=== PATIENT | male | born 1965 | race Hispanic/Latino ===

== ENCOUNTER 2017-07-21 12:36 | Day surgery (SDC) | payer BC ==
[2017-07-21] MEDS ORDERED: NACL 0.9% 1000 ML 1,000 ML ONE (13:06)
[2017-07-21] MEDS ORDERED: NACL 0.9% 1000 ML 1,000 ML IV SCH (14:00)
--- NOTE | 2017-07-21 14:43 | Anesthesia Consultation ---
Anesthesia Consult and Med Hx Date of service: 07/21/17 - Airway Anesthetic Teeth Evaluation: Good - Cardiac Exam Cardiac Exam: RRR - Pre-Operative Health Status ASA Pre-Surgery Classification: ASA2 Proposed Anesthetic Plan: IV Sedation - Pulmonary Hx Smoking: No Hx Asthma: No Hx Respiratory Symptoms: No SOB: No COPD: No Home Oxygen Therapy: No Hx Pneumonia: No Hx Sleep Apnea: No - Cardiovascular System Hx Hypertension: No Hx Coronary Artery Disease: No Hx Heart Attack/AMI: No Hx Angina: No Hx Percutaneous Transluminal Coronary Angioplasty (PTCA): No Hx Cardia Arrhythmia: No Hx Pacemaker: No Hx Internal Defibrillator: No Hx Valvular Heart Disease: No Hx Heart Murmur: No Hx Peripheral Vascular Disease: No - Central Nervous System Hx Neuromuscular Disorder: No Hx Seizures: No CVA: No Hx Back Pain: No Hx Psychiatric Problems: No - Gastrointestinal Hx Ulcer: No (screening colonoscopy) Hx Gastroesophageal Reflux Disease: No - Endocrine Hx Renal Disease: No Hx Liver Disease: No Hx Insulin Dependent Diabetes: No Hx Non-Insulin Dependent Diabetes: No Hx Thyroid Disease: No Hx Hypothyroidism: No Hx Hyperthyroidism: No - Other Systems Hx Alcohol Use: No Hx Substance Use: No Hx Cancer: No
--- NOTE | 2017-07-21 15:29 | Procedure Note ---
Date of procedure: 07/21/17 Pre-op diagnosis: Screening colonoscopy Post-op diagnosis: same Procedure: Colonoscopy to cecum Description of procedure. Pt was placed right side up. He was sedated IV by anesthesia. The scope was inserted into his rectum and was advanced retrograde while directly visualizing his lumen. The prep was adequate. Once the cecum was identified, the scope was slowly withdrawn with slow, careful, circumferential visualization of the colon. No tumors, polyps, diverticula, ulcerations or AVM's were noted. Retroflexed view of the distal rectum was also performed and was unrevealing. Insufflated air was aspirated and the scope withdrawn. Pt tolerated the procedure well. Anesthesia: MAC Surgeon: JOSE JEROME Estimated blood loss: none Pathology: none Condition: stable Disposition: same day
[2017-07-21 16:01] VITALS: BP 110/56
[2017-07-22] MEDS ORDERED: XYLOCAINE MPF 2% ONE (07:10)
[2017-07-22] MEDS ORDERED: SUBLIMAZE ONE (07:10)
[2017-07-22] MEDS ORDERED: DIPRIVAN 10 MG/ML IV ONE (07:10)
[2017-07-22] MEDS ORDERED: ZEMURON IV ONE (07:10)
[2017-07-22] MEDS ORDERED: ZOFRAN ONE (08:40)
[2017-07-22] MEDS ORDERED: TORADOL ONE (08:40)
[2017-07-22] MEDS ORDERED: NEOSTIGMINE ONE (08:47)
[2017-07-22] MEDS ORDERED: ROBINUL ONE (08:47)
== END 2017-07-21 12:37 | disposition home or self-care (01) ==
LOC: GIO 12:36
PROVIDERS: ATTEND Surgery
DX: Z12.11 Encounter for screening for malignant neoplasm of colon (principal)
CPT/HCPCS: 45378; J7030; J1885; J2405; J2704; J2710; J3010

== ENCOUNTER 2017-07-22 06:08 | Day surgery (SDC) | payer BC ==
[~2017-07-22 06:08] MED LIST: DIPRIVAN 10 MG/ML IV ONE; NACL 0.9% IR ONE
[2017-07-22] MEDS ORDERED: NACL BACTERIOSTATIC INFILTRATI ONE (06:10)
[2017-07-22] MEDS ORDERED: MARCAINE-EPI 0.5%-1:200,000 INFILTRATI ONE (07:04)
[2017-07-22] MEDS ORDERED: ANCEF/STERILE WATER 2 GM/20 ML IV NR (07:06)
[2017-07-22] MEDS ORDERED: LACTATED RINGERS 1,000 ML IV SCH (07:06)
[2017-07-22] MEDS ORDERED: HEPARIN SUB-Q NR (07:15)
[2017-07-22] MEDS ORDERED: ZOFRAN IV PRN (07:31)
--- NOTE | 2017-07-22 07:34 | Anesthesia Consultation ---
Anesthesia Consult and Med Hx Date of service: 07/22/17 - Airway Anesthetic Teeth Evaluation: Good ROM Head & Neck: Adequate Mental/Hyoid Distance: Adequate Mallampati Class: Class II Intubation Access Assessment: Probably Good - Pulmonary Exam CTA: Yes - Cardiac Exam Cardiac Exam: RRR - Pre-Operative Health Status ASA Pre-Surgery Classification: ASA1 Proposed Anesthetic Plan: General - Pulmonary Hx Smoking: No Hx Asthma: No Hx Respiratory Symptoms: No SOB: No COPD: No Hx Pneumonia: No Hx Sleep Apnea: No - Cardiovascular System Hx Hypertension: No Hx Coronary Artery Disease: No Hx Heart Attack/AMI: No Hx Angina: No Hx Percutaneous Transluminal Coronary Angioplasty (PTCA): No Hx Cardia Arrhythmia: No Hx Pacemaker: No Hx Internal Defibrillator: No Hx Valvular Heart Disease: No Hx Heart Murmur: No Hx Peripheral Vascular Disease: No - Central Nervous System Hx Neuromuscular Disorder: No Hx Seizures: No CVA: No Hx Back Pain: No Hx Psychiatric Problems: No - Gastrointestinal Hx Ulcer: No (screening colonoscopy) Hx Gastroesophageal Reflux Disease: No - Endocrine Hx Renal Disease: No Hx Liver Disease: No Hx Insulin Dependent Diabetes: No Hx Non-Insulin Dependent Diabetes: No Hx Thyroid Disease: No Hx Hypothyroidism: No Hx Hyperthyroidism: No - Other Systems Hx Alcohol Use: No Hx Substance Use: No Hx Cancer: No
--- NOTE | 2017-07-22 07:34 | Anesthesia Day of Surgery ---
Anesthesia Day of Surgery - Day of Surgery Patient Examined: Yes Patient H&P Reviewed: Yes Patient is NPO: Yes
--- NOTE | 2017-07-22 07:46 | Procedure Note ---
Date of procedure: 07/22/17 Pre-op diagnosis: RIH Post-op diagnosis: same (indirect) Procedure: Laparoscopic repair of RIH Description of procedure: Pt was placed supine on the OR table. GETA was administered. Abdomen was prepped and draped. Proposed trocar sites were infiltrated with 5 ml of 0.5% Marcaine. A small, infraumbilical incision was made and the right anterior rectus sheath incised adjacent to the midline. The balloon dissector was inserted into the preperitoneal space and was insufflated. The balloon dissector was removed and was replaced with a 10 mm [place] port. Two 5 mm ports were then placed in the midline just above the symphysis and in the mid-hypogastrium. Pt was placed in a Trendelenburg position with his right side rotated upward. An indirect hernia sac was immediately identified. This was dissected back towards the peritoneal cavity. There was no evidence of a direct hernia. Areas of dissection were checked for hemostasis which was excellent. A medium piece of Bard 3-D Max mesh was inserted into the pre-peritoneal space. The mesh was secured to the symphysis medially and the abdominal wall just above the anterior superior iliac spine with spiral tacks. Two additional spiral tacks were placed on either side of the inferior epigastric vessels. The air in the preperitoneal space was released and all the ports removed. The incision in the right anterior rectus sheath was closed with two sutures of 0-Vicryl. Skin incisions were closed with running 4-0 Monocryl. Sterile absorbent dressings were applied. Pt tolerated the procedure well. He was taken to PACU in stable condition. Anesthesia: GETA, other Surgeon: JOSE JEROME Estimated blood loss: minimal Pathology: none Condition: stable Disposition: PACU
[2017-07-22] MEDS ORDERED: MARCAINE-EPI/PF 0.25%-1:200,000 INFILTRATI ONE ×2 (07:57)
[2017-07-22] MEDS ORDERED: VERSED IV NR (08:00)
[2017-07-22] MEDS ORDERED: NACL 0.9% IR ONE (08:45)
[2017-07-22] MEDS: DILAUDID IV PRN ×2 (09:30→09:43)
[2017-07-22] MEDS ORDERED: PERCOCET 5/325 ONE (09:49)
[2017-07-22] MEDS ORDERED: PERCOCET 5/325 PO PRN (10:00)
[2017-07-22] MEDS ORDERED: TRANSDERM-SCOP TD ONE (10:24)
[2017-07-22] MEDS ORDERED: PHENERGAN PO ONE (11:00)
[2017-07-22 12:42] VITALS: BP 112/59
--- NOTE | 2017-07-22 13:21 | Post Anesthesia Evaluation ---
- Post Anesthesia Evaluation Patient Participated: Yes Airway Patent: Yes Stable Respiratory Function: Yes Nausea/Vomiting: No Temp > 96.8F: Yes Pain Manageable: Yes Adequeate Hydration: Yes Anesthesia Complications: No
== END 2017-07-22 13:05 | disposition home or self-care (01) ==
LOC: OR 06:08
PROVIDERS: ATTEND Surgery
DX: K40.90 Unilateral inguinal hernia, without obstruction or gangrene, not specified as recurrent (principal)
CPT/HCPCS: 49650; C1726; C1781; J0690; J1170; J1644; J2250; J2405; J2704; J7120; Q0169